=== PATIENT | female | born 2000 | race American Indian/Alaskan Native ===

== ENCOUNTER 2018-09-07 16:42 | Inpatient (IN) | payer MEDICAID ==
--- NOTE | 2018-09-07 17:05 | Emergency Department Report ---
ED Psych HPI - General Chief Complaint: Psych Stated Complaint: MH Time Seen by Provider: 09/07/18 17:05 Source: EMS Mode of arrival: Stretcher - History of Present Illness Initial Comments: Patient overdosed on an unknown amount of Xanax and other unknown medications. Patient is altered and confused and she is not answering questions. However, she is drowsy but arousable and protection her air way. MD Complaint: suicidal ideation, feels depressed -: Sudden, This afternoon Associated Psychiatric Symptoms: depression, suicidal ideation Quality: constant Improves With: none Worsens With: none Associated Symptoms: confusion Treatments Prior to Arrival: none - Related Data Home Medications Medication Instructions Recorded Confirmed Last Taken Unobtainable 09/07/18 09/07/18 Unknown Allergies Allergy/AdvReac Type Severity Reaction Status Date / Time No Known Allergies Allergy Verified 09/07/18 16:50 ED Review of Systems ROS: Stated complaint: MH Other details as noted in HPI Comment: Unobtainable due to pts medical conditions (altered mental status) ED Past Medical Hx - Past Medical History Hx Psychiatric Treatment: Yes - Surgical History Additional Surgical History: 10lb ovarian cyst removed - Social History Smoking Status: Unknown if ever smoked - Medications Home Medications: Home Medications Medication Instructions Recorded Confirmed Last Taken Type Unobtainable 09/07/18 09/07/18 Unknown History ED Physical Exam - General Limitations: Altered Mental Status General appearance: lethargic - Head Head exam: Present: atraumatic, normal inspection - Eye Eye exam: Present: normal appearance, PERRL - ENT ENT exam: Present: mucous membranes moist - Neck Neck exam: Present: normal inspection, full ROM - Respiratory Respiratory exam: Present: normal lung sounds bilaterally. Absent: respiratory distress - Cardiovascular Cardiovascular Exam: Present: regular rate, normal rhythm, normal heart sounds. Absent: systolic murmur, diastolic murmur, rubs, gallop - GI/Abdominal GI/Abdominal exam: Present: soft, normal bowel sounds. Absent: distended, tenderness, guarding - Rectal Rectal exam: Present: deferred - Extremities Exam Extremities exam: Present: normal inspection - Back Exam Back exam: Present: normal inspection - Neurological Exam Neurological exam: Present: alert, altered, other (Gcs = 10) - Psychiatric Psychiatric exam: Present: normal affect, normal mood - Skin Skin exam: Present: warm, dry, intact, normal color. Absent: rash ED Course Vital Signs 09/07/18 09/07/18 09/07/18 17:05 18:26 18:30 Pulse Rate 96 H 86 88 Respiratory 12 14 16 Rate Blood Pressure 73/43 Blood Pressure 90/50 [Left] O2 Sat by Pulse 100 100 100 Oximetry 09/07/18 09/07/18 09/07/18 18:45 19:00 19:15 Pulse Rate 90 88 86 Respiratory 12 17 14 Rate Blood Pressure 88/43 72/40 81/42 Blood Pressure [Left] O2 Sat by Pulse 100 100 Oximetry 09/07/18 09/07/18 09/07/18 19:30 19:45 20:00 Pulse Rate 87 77 89 Respiratory 16 13 13 Rate Blood Pressure 90/52 100/63 103/54 Blood Pressure [Left] O2 Sat by Pulse 100 100 Oximetry 09/07/18 09/07/18 09/07/18 20:45 21:00 21:15 Pulse Rate 95 H 90 Respiratory 17 17 Rate Blood Pressure 117/74 117/74 82/48 Blood Pressure [Left] O2 Sat by Pulse 100 100 100 Oximetry 09/07/18 09/07/18 21:30 21:45 Pulse Rate 90 90 Respiratory 13 15 Rate Blood Pressure 80/45 93/56 Blood Pressure [Left] O2 Sat by Pulse 100 Oximetry - Consultations Consultation #1: 09/07/18 21:09 Dr Barr to admit for further management. - Central Line Placement Right Femoral Consent Obtained: emergent situation Time Out Performed: Yes Patient Placed on Monitor/Pulse Ox: Yes MD Prep: mask, gown, gloves Central Line Prep: Chlorhexidine scrub Local Anesthesia Used: Lidocaine 1% Amount of Anesthesia Used (mls): 5 Ultrasound Used for Placement: Yes Central Line Lumen Inserted: triple Bloods Obtained for Lab: No Central Line Position: good blood return, all ports aspirated, flus, sutured in place with 2-0 Dressing Applied: Tegaderm, sterile gauze/tape Patient Tolerated Procedure: well, no complications Complications: none - EJ/Peripheral Line Neck R Time Out Performed: Yes Indications: multiple IV sites needed Skin Cleansed in Sterile Fashion: Yes Size: 18 Dressing Placed: Tegaderm, tape Patient Tolerated Procedure: well, no complications ED Medical Decision Making - Lab Data Result diagrams: 09/07/18 17:46 09/07/18 17:46 Lab Results 09/07/18 09/07/18 09/07/18 Range/Units 17:46 17:46 17:46 WBC 6.5 (4.5-11.0) K/mm3 RBC 4.79 (3.65-5.03) M/mm3 Hgb 13.6 (10.1-14.3) gm/dl Hct 40.6 (30.3-42.9) % MCV 85 (79-97) fl MCH 28 (28-32) pg MCHC 34 (30-34) % RDW 14.6 (13.2-15.2) % Plt Count 202 (140-440) K/mm3 Lymph % (Auto) 22.7 (13.4-35.0) % Rowan % (Auto) 12.4 H (0.0-7.3) % Eos % (Auto) 0.4 (0.0-4.3) % Baso % (Auto) 0.4 (0.0-1.8) % Lymph # 1.5 (1.2-5.4) K/mm3 Rowan # 0.8 (0.0-0.8) K/mm3 Eos # 0.0 (0.0-0.4) K/mm3 Baso # 0.0 (0.0-0.1) K/mm3 Seg Neutrophils % 64.1 (40.0-70.0) % Seg Neutrophils # 4.2 (1.8-7.7) K/mm3 Sodium 140 (137-145) mmol/L Potassium 4.1 (3.6-5.0) mmol/L Chloride 101.7 (98-107) mmol/L Carbon Dioxide 26 (22-30) mmol/L Anion Gap 16 mmol/L BUN 11 (7-17) mg/dL Creatinine 0.8 (0.7-1.2) mg/dL Estimated GFR > 60 ml/min BUN/Creatinine Ratio 14 % Glucose 77 (65-100) mg/dL Calcium 9.5 (8.4-10.2) mg/dL Total Bilirubin 0.50 (0.1-1.2) mg/dL AST 23 (5-40) units/L ALT 14 (7-56) units/L Alkaline Phosphatase 51 (35-129) units/L Total Protein 7.9 (6.3-8.2) g/dL Albumin 4.5 (3.9-5) g/dL Albumin/Globulin Ratio 1.3 % TSH 1.770 (0.270-4.200) mlU/mL HCG, Qual (Negative) Salicylates (2.8-20.0) mg/dL Acetaminophen (10.0-30.0) ug/mL Plasma/Serum Alcohol (0-0.07) % 09/07/18 09/07/18 09/07/18 Range/Units 17:46 17:46 17:46 WBC (4.5-11.0) K/mm3 RBC (3.65-5.03) M/mm3 Hgb (10.1-14.3) gm/dl Hct (30.3-42.9) % MCV (79-97) fl MCH (28-32) pg MCHC (30-34) % RDW (13.2-15.2) % Plt Count (140-440) K/mm3 Lymph % (Auto) (13.4-35.0) % Rowan % (Auto) (0.0-7.3) % Eos % (Auto) (0.0-4.3) % Baso % (Auto) (0.0-1.8) % Lymph # (1.2-5.4) K/mm3 Rowan # (0.0-0.8) K/mm3 Eos # (0.0-0.4) K/mm3 Baso # (0.0-0.1) K/mm3 Seg Neutrophils % (40.0-70.0) % Seg Neutrophils # (1.8-7.7) K/mm3 Sodium (137-145) mmol/L Potassium (3.6-5.0) mmol/L Chloride (98-107) mmol/L Carbon Dioxide (22-30) mmol/L Anion Gap mmol/L BUN (7-17) mg/dL Creatinine (0.7-1.2) mg/dL Estimated GFR ml/min BUN/Creatinine Ratio % Glucose (65-100) mg/dL Calcium (8.4-10.2) mg/dL Total Bilirubin (0.1-1.2) mg/dL AST (5-40) units/L ALT (7-56) units/L Alkaline Phosphatase (35-129) units/L Total Protein (6.3-8.2) g/dL Albumin (3.9-5) g/dL Albumin/Globulin Ratio % TSH (0.270-4.200) mlU/mL HCG, Qual (Negative) Salicylates < 0.3 L (2.8-20.0) mg/dL Acetaminophen < 5.0 L (10.0-30.0) ug/mL Plasma/Serum Alcohol < 0.01 (0-0.07) % 09/07/18 Range/Units 17:46 WBC (4.5-11.0) K/mm3 RBC (3.65-5.03) M/mm3 Hgb (10.1-14.3) gm/dl Hct (30.3-42.9) % MCV (79-97) fl MCH (28-32) pg MCHC (30-34) % RDW (13.2-15.2) % Plt Count (140-440) K/mm3 Lymph % (Auto) (13.4-35.0) % Rowan % (Auto) (0.0-7.3) % Eos % (Auto) (0.0-4.3) % Baso % (Auto) (0.0-1.8) % Lymph # (1.2-5.4) K/mm3 Rowan # (0.0-0.8) K/mm3 Eos # (0.0-0.4) K/mm3 Baso # (0.0-0.1) K/mm3 Seg Neutrophils % (40.0-70.0) % Seg Neutrophils # (1.8-7.7) K/mm3 Sodium (137-145) mmol/L Potassium (3.6-5.0) mmol/L Chloride (98-107) mmol/L Carbon Dioxide (22-30) mmol/L Anion Gap mmol/L BUN (7-17) mg/dL Creatinine (0.7-1.2) mg/dL Estimated GFR ml/min BUN/Creatinine Ratio % Glucose (65-100) mg/dL Calcium (8.4-10.2) mg/dL Total Bilirubin (0.1-1.2) mg/dL AST (5-40) units/L ALT (7-56) units/L Alkaline Phosphatase (35-129) units/L Total Protein (6.3-8.2) g/dL Albumin (3.9-5) g/dL Albumin/Globulin Ratio % TSH (0.270-4.200) mlU/mL HCG, Qual Negative (Negative) Salicylates (2.8-20.0) mg/dL Acetaminophen (10.0-30.0) ug/mL Plasma/Serum Alcohol (0-0.07) % - EKG Data -: EKG Interpreted by Sd EKG shows normal: sinus rhythm Rate: normal (93) - EKG Data When compared to previous EKG there are: previous EKG unavailable Interpretation: nonspecific ST-T wave candi 09/07/18 21:10 No STEMI. RVH. - Radiology Data Radiology results: report reviewed, image reviewed Head CT scan is negative. - Medical Decision Making Multiple drug overdose. Suicide Ideation. Severe Depression. Hypotension. Critical Care Time: Yes Critical care time in (mins) excluding proc time.: 65 Critical care attestation.: If time is entered above; I have spent that time in minutes in the direct care of this critically ill patient, excluding procedure time. ED Disposition Clinical Impression: Suicide ideation Hypotension Qualifiers: Hypotension type: unspecified hypotension type Qualified Code(s): I95.9 - Hypotension, unspecified Drug overdose, multiple drugs Qualifiers: Encounter type: initial encounter Injury intent: intentional self-harm Qu alified Code(s): T50.902A - Poisoning by unspecified drugs, medicaments and biological substances, intentional self-harm, initial encounter Major depression Qualifiers: Major depression recurrence: unspecified whether recurrent Active/Remission status: remission status unspecified Qualified Code(s): F32.9 - Major depressive disorder, single episode, unspecified Disposition: -09 OP ADMIT IP TO THIS HOSP Is pt being admited?: Yes Does the pt Need Aspirin: No Condition: Stable Time of Disposition: 21:12
[2018-09-07] MEDS ORDERED: NACL 0.9% 1000 ML 1,000 ML IV ONE ×3 (17:16→23:18)
[2018-09-07 17:56] LABS: Basophils % (Auto) 0.4 % (0.0-1.8); Eosinophils % (Auto) 0.4 % (0.0-4.3); Hematocrit 40.6 % (30.3-42.9); Hemoglobin 13.6 gm/dl (10.1-14.3); Lymphocytes # (Auto) 1.5 K/mm3 (1.2-5.4); Lymphocytes % (Auto) 22.7 % (13.4-35.0); Mean Corpuscular HGB Conc 34 % (30-34); Mean Corpuscular Volume 85 fl (79-97); Monocytes # (Auto) 0.8 K/mm3 (0.0-0.8); Monocytes % (Auto) 12.4 % (0.0-7.3); Platelet Count 202 K/mm3 (140-440); Red Blood Count 4.79 M/mm3 (3.65-5.03); Red Cell Distribution Width 14.6 % (13.2-15.2)
[2018-09-07 18:14] LABS: Alanine Aminotransferase 14 units/L (7-56); Albumin 4.5 g/dL (3.9-5); BUN/Creatinine Ratio 14; Blood Urea Nitrogen 11 mg/dL (7-17); Calcium 9.5 mg/dL (8.4-10.2); Hemolysis Index 41
[2018-09-07] MEDS ORDERED: LEVOPHED DRIP 4 MG/NS 250 ML 4 MG/250 ML BAG IV ONE (19:15)
[2018-09-07] MEDS: LEVOPHED DRIP 4 MG/NS 250 ML 4 MG/250 ML BAG IV SCH (19:15)
[2018-09-07] MEDS ORDERED: D50W (25GM) Syringe IV ONE (20:50)
[2018-09-07] MEDS ORDERED: D5NS 1,000 ML IV SCH (21:00)
--- NOTE | 2018-09-07 21:03 | Cat Scan Report ---
FINAL REPORT PROCEDURE: CT head without contrast. TECHNIQUE: Computerized tomography of the head was performed without contrast material. HISTORY: Altered mental status. COMPARISON: No prior studies are available for comparison. FINDINGS: The ventricles are normal in size. The brito matter and white matter appear normal. There are no mass lesions. There is no intracranial hemorrhage. The calvarium appears intact. The mastoid air cells and visualized paranasal sinuses are well aerated. IMPRESSION: Normal study.
[2018-09-07 21:14] LABS: Bacteria,Urine 1+ /HPF (Negative); Bilirubin,Urine NEG (Negative); Blood,Urine SM (Negative); Color,Urine Yellow (Yellow); Mucus,Urine 2+ /HPF; Protein,Urine <15 mg/dL mg/dL (Negative); Urobilinogen,Urine < 2.0 mg/dL (<2.0)
[2018-09-07 21:21] LABS: Amphetamine Screen,Urine PRESUMPTIVE NEGATIVE; Cannabinoid Screen,Urine PRESUMPTIVE NEGATIVE; Cocaine Screen,Urine PRESUMPTIVE NEGATIVE; Methadone Screen,Urine PRESUMPTIVE NEGATIVE; Opiate Screen,Urine PRESUMPTIVE NEGATIVE
[2018-09-07 21:49] LABS: Benzodiazepines Screen,Urine PRESUMPTIVE POSITIVE
--- NOTE | 2018-09-07 21:52 | XRay Report ---
FINAL REPORT PROCEDURE: Chest. TECHNIQUE: Chest radiograph anteroposterior view. CPT 69629 HISTORY: Altered mental status. COMPARISON: No prior studies are available for comparison. FINDINGS: The heart and mediastinum appear normal. The lungs are clear and well expanded. There are no pleural effusions. The soft tissues and regional skeleton are unremarkable. IMPRESSION: No evidence of acute disease.
[2018-09-07] MEDS ORDERED: SODIUM CHLORIDE FLUSH SYRINGE 10 ML IV PRN (22:38)
[2018-09-07] MEDS ORDERED: REGLAN IV PRN (22:38)
--- NOTE | 2018-09-07 22:52 | History and Physical Report ---
<ERIKA MATHEW - Last Filed: 09/08/18 06:19> History of Present Illness Date of examination: 09/07/18 Date of admission: 09/08/2018 Chief complaint: DOD, AMS History of present illness: Pt is a 18 yo BF with unknown medical condition who was brought to the ER for concern for DOD, pt has been unresponsive since admission, a UDS was positive for benzodiazepine. There was no family unavailable to provide medical history, while in the ER pt remain unresponsive, pt is responsive to painful stimuli, her pupil is pinpoint, her blood systolic pressure become low and continue to remain under 100, she was started in a Levophed drip to keep her systolic > 110.Pt will be transferred to ICU for continuous medical monitoring, she is placed in a 1013, and one-in-one observation is provided in room for pt's protection. Past History Past Medical History: No medical history Past Surgical History: No surgical history Social history: no significant social history Medications and Allergies Allergies Allergy/AdvReac Type Severity Reaction Status Date / Time No Known Allergies Allergy Verified 09/07/18 16:50 Home Medications Medication Instructions Recorded Confirmed Last Taken Type Unobtainable 09/07/18 09/07/18 Unknown History Active Meds: Active Medications Norepinephrine (Levophed Drip 4 Mg/Ns 250 Ml) 4 mg in 250 mls @ 7.5 mls/hr IV TITR HARJIT; Protocol Last Titration: 09/07/18 21:35 Dose: 4 mcg/min, 15 mls/hr Documented by: Dextrose/Sodium Chloride (D5ns) 1,000 mls @ 150 mls/hr IV DIRECT HARJIT Last Admin: 09/07/18 21:00 Dose: 150 mls/hr Documented by: Review of Systems ROS unobtainable: due to mental status Exam - Constitutional Vitals: Temp Pulse Resp BP Pulse Ox 90 15 93/56 100 09/07/18 21:45 09/07/18 21:45 09/07/18 21:45 09/07/18 21:30 General appearance: Present: other (pt is unresponsive) - Respiratory Respiratory effort: other (even and unlabored, shallow) Respiratory: bilateral: CTA - Cardiovascular Rhythm: regular - Extremities Extremities: no ischemia, No edema Peripheral Pulses: within normal limits - Abdominal General gastrointestinal: Present: soft, non-tender Female genitourinary: Present: deferred - Rectal Rectal Exam: deferred - Integumentary Integumentary: Present: warm, dry - Musculoskeletal Musculoskeletal: other (unable to assess) - Psychiatric Psychiatric: other (unable to assess) - Neurologic Neurologic: other (unable to assess) Results - Labs CBC & Chem 7: 09/07/18 17:46 09/07/18 17:46 Labs: Laboratory Last Values WBC 6.5 K/mm3 (4.5-11.0) 09/07/18 17:46 RBC 4.79 M/mm3 (3.65-5.03) 09/07/18 17:46 Hgb 13.6 gm/dl (10.1-14.3) 09/07/18 17:46 Hct 40.6 % (30.3-42.9) 09/07/18 17:46 MCV 85 fl (79-97) 09/07/18 17:46 MCH 28 pg (28-32) 09/07/18 17:46 MCHC 34 % (30-34) 09/07/18 17:46 RDW 14.6 % (13.2-15.2) 09/07/18 17:46 Plt Count 202 K/mm3 (140-440) 09/07/18 17:46 Lymph % (Auto) 22.7 % (13.4-35.0) 09/07/18 17:46 [place] % (Auto) 12.4 % (0.0-7.3) H 09/07/18 17:46 Eos % (Auto) 0.4 % (0.0-4.3) 09/07/18 17:46 Baso % (Auto) 0.4 % (0.0-1.8) 09/07/18 17:46 Lymph # 1.5 K/mm3 (1.2-5.4) 09/07/18 17:46 [place] # 0.8 K/mm3 (0.0-0.8) 09/07/18 17:46 Eos # 0.0 K/mm3 (0.0-0.4) 09/07/18 17:46 Baso # 0.0 K/mm3 (0.0-0.1) 09/07/18 17:46 Seg Neutrophils % 64.1 % (40.0-70.0) 09/07/18 17:46 Seg Neutrophils # 4.2 K/mm3 (1.8-7.7) 09/07/18 17:46 Sodium 140 mmol/L (137-145) 09/07/18 17:46 Potassium 4.1 mmol/L (3.6-5.0) 09/07/18 17:46 Chloride 101.7 mmol/L (98-107) 09/07/18 17:46 Carbon Dioxide 26 mmol/L (22-30) 09/07/18 17:46 Anion Gap 16 mmol/L 09/07/18 17:46 BUN 11 mg/dL (7-17) 09/07/18 17:46 Creatinine 0.8 mg/dL (0.7-1.2) 09/07/18 17:46 Estimated GFR > 60 ml/min 09/07/18 17:46 BUN/Creatinine Ratio 14 % 09/07/18 17:46 Glucose 77 mg/dL (65-100) 09/07/18 17:46 Calcium 9.5 mg/dL (8.4-10.2) 09/07/18 17:46 Total Bilirubin 0.50 mg/dL (0.1-1.2) 09/07/18 17:46 AST 23 units/L (5-40) 09/07/18 17:46 ALT 14 units/L (7-56) 09/07/18 17:46 Alkaline Phosphatase 51 units/L (35-129) 09/07/18 17:46 Total Protein 7.9 g/dL (6.3-8.2) 09/07/18 17:46 Albumin 4.5 g/dL (3.9-5) 09/07/18 17:46 Albumin/Globulin Ratio 1.3 % 09/07/18 17:46 TSH 1.770 mlU/mL (0.270-4.200) 09/07/18 17:46 HCG, Qual Negative (Negative) 09/07/18 17:46 Urine Color Yellow (Yellow) 09/07/18 20:58 Urine Turbidity Clear (Clear) 09/07/18 20:58 Urine pH 5.0 (5.0-7.0) 09/07/18 20:58 Ur Specific Covel 1.012 (1.003-1.030) 09/07/18 20:58 Urine Protein <15 mg/dl mg/dL (Negative) 09/07/18 20:58 Urine Glucose (UA) 50 mg/dL (Negative) 09/07/18 20:58 Urine Ketones 20 mg/dL (Negative) 09/07/18 20:58 Urine Blood Sm (Negative) 09/07/18 20:58 Urine Nitrite Neg (Negative) 09/07/18 20:58 Urine Bilirubin Neg (Negative) 09/07/18 20:58 Urine Urobilinogen < 2.0 mg/dL (<2.0) 09/07/18 20:58 Ur Leukocyte Esterase Tr (Negative) 09/07/18 20:58 Urine WBC (Auto) 6.0 /HPF (0.0-6.0) 09/07/18 20:58 Urine RBC (Auto) 4.0 /HPF (0.0-6.0) 09/07/18 20:58 U Epithel Cells (Auto) 1.0 /HPF (0-13.0) 09/07/18 20:58 Urine Bacteria (Auto) 1+ /HPF (Negative) 09/07/18 20:58 Urine Mucus 2+ /HPF 09/07/18 20:58 Urine Yeast (Budding) Few /HPF 09/07/18 20:58 Salicylates < 0.3 mg/dL (2.8-20.0) L 09/07/18 17:46 Urine Opiates Screen Presumptive negative 09/07/18 20:58 Urine Methadone Screen Presumptive negative 09/07/18 20:58 Acetaminophen < 5.0 ug/mL (10.0-30.0) L 09/07/18 17:46 Ur Barbiturates Screen Presumptive negative 09/07/18 20:58 Ur Phencyclidine Scrn Presumptive negative 09/07/18 20:58 Ur Amphetamines Screen Presumptive negative 09/07/18 20:58 U Benzodiazepines Scrn Presumptive positive 09/07/18 20:58 Urine Cocaine Screen Presumptive negative 09/07/18 20:58 U Marijuana (THC) Screen Presumptive negative 09/07/18 20:58 Drugs of Abuse Note Disclamer 09/07/18 20:58 Plasma/Serum Alcohol < 0.01 % (0-0.07) 09/07/18 17:46 Assessment and Plan Assessment and plan: Pt is a 18 yo female with DOD, UDS was positive for benzo 1. Drug over dose 2. UDS positive for Benzo 3. 1030 Plan Admitted to ICU for DOD Consult javascript front end developer for critical care management Keep pt NPO until awake and alert Continue Levophed drip to keep SBP> 110 or MAP >65 Monitor neuro status q2hr D5NS for hydration while NPO Check Electrolytes K/Mg initiate protocol Further plan per hospital course Pt's condition and plan of care was d/w Dr Barr Advance Directives: Yes VTE prophylaxis?: Mechanical Plan of care discussed with patient/family: Yes <NOA BARR - Last Filed: 09/08/18 06:47> History of Present Illness Date of admission: 09/07/18 22:38 Medications and Allergies Active Meds: Active Medications Famotidine (Pepcid) 20 mg IV BID [facility] Last Admin: 09/07/18 23:17 Dose: 20 mg Documented by: Norepinephrine (Levophed Drip 4 Mg/Ns 250 Ml) 4 mg in 250 mls @ 7.5 mls/hr IV TITR HARJIT; Protocol Last Titration: 09/07/18 23:17 Dose: 2 mcg/min, 7.5 mls/hr Documented by: Sodium Chloride (Nacl 0.9% 1000 Ml) 1,000 mls @ 150 mls/hr IV DIRECT HARJIT Metoclopramide HCl (Reglan) 10 mg IV Q6H PRN PRN Reason: Nausea And Vomiting Ondansetron HCl (Zofran) 4 mg IV Q8H PRN PRN Reason: Nausea And Vomiting Sodium Chloride (Sodium Chloride Flush Syringe 10 Ml) 10 ml IV BID [facility] Last Admin: 09/07/18 23:17 Dose: 10 ml Documented by: Sodium Chloride (Sodium Chloride Flush Syringe 10 Ml) 10 ml IV PRN PRN PRN Reason: LINE FLUSH Exam - Constitutional Vitals: Temp Pulse Resp BP Pulse Ox 88 13 111/72 100 09/08/18 04:45 09/08/18 04:45 09/08/18 04:45 09/08/18 04:45 Results - Labs CBC & Chem 7: 09/07/18 17:46 09/07/18 17:46 Labs: Laboratory Last Values WBC 6.5 K/mm3 (4.5-11.0) 09/07/18 17:46 RBC 4.79 M/mm3 (3.65-5.03) 09/07/18 17:46 Hgb 13.6 gm/dl (10.1-14.3) 09/07/18 17:46 Hct 40.6 % (30.3-42.9) 09/07/18 17:46 MCV 85 fl (79-97) 09/07/18 17:46 MCH 28 pg (28-32) 09/07/18 17:46 MCHC 34 % (30-34) 09/07/18 17:46 RDW 14.6 % (13.2-15.2) 09/07/18 17:46 Plt Count 202 K/mm3 (140-440) 09/07/18 17:46 Lymph % (Auto) 22.7 % (13.4-35.0) 09/07/18 17:46 [place] % (Auto) 12.4 % (0.0-7.3) H 09/07/18 17:46 Eos % (Auto) 0.4 % (0.0-4.3) 09/07/18 17:46 Baso % (Auto) 0.4 % (0.0-1.8) 09/07/18 17:46 Lymph # 1.5 K/mm3 (1.2-5.4) 09/07/18 17:46 [place] # 0.8 K/mm3 (0.0-0.8) 09/07/18 17:46 Eos # 0.0 K/mm3 (0.0-0.4) 09/07/18 17:46 Baso # 0.0 K/mm3 (0.0-0.1) 09/07/18 17:46 Seg Neutrophils % 64.1 % (40.0-70.0) 09/07/18 17:46 Seg Neutrophils # 4.2 K/mm3 (1.8-7.7) 09/07/18 17:46 Sodium 140 mmol/L (137-145) 09/07/18 17:46 Potassium 4.1 mmol/L (3.6-5.0) 09/07/18 17:46 Chloride 101.7 mmol/L (98-107) 09/07/18 17:46 Carbon Dioxide 26 mmol/L (22-30) 09/07/18 17:46 Anion Gap 16 mmol/L 09/07/18 17:46 BUN 11 mg/dL (7-17) 09/07/18 17:46 Creatinine 0.8 mg/dL (0.7-1.2) 09/07/18 17:46 Estimated GFR > 60 ml/min 09/07/18 17:46 BUN/Creatinine Ratio 14 % 09/07/18 17:46 Glucose 77 mg/dL (65-100) 09/07/18 17:46 Calcium 9.5 mg/dL (8.4-10.2) 09/07/18 17:46 Total Bilirubin 0.50 mg/dL (0.1-1.2) 09/07/18 17:46 AST 23 units/L (5-40) 09/07/18 17:46 ALT 14 units/L (7-56) 09/07/18 17:46 Alkaline Phosphatase 51 units/L (35-129) 09/07/18 17:46 Total Protein 7.9 g/dL (6.3-8.2) 09/07/18 17:46 Albumin 4.5 g/dL (3.9-5) 09/07/18 17:46 Albumin/Globulin Ratio 1.3 % 09/07/18 17:46 TSH 1.770 mlU/mL (0.270-4.200) 09/07/18 17:46 HCG, Qual Negative (Negative) 09/07/18 17:46 Urine Color Yellow (Yellow) 09/07/18 20:58 Urine Turbidity Clear (Clear) 09/07/18 20:58 Urine pH 5.0 (5.0-7.0) 09/07/18 20:58 Ur Specific [place]vel 1.012 (1.003-1.030) 09/07/18 20:58 Urine Protein <15 mg/dl mg/dL (Negative) 09/07/18 20:58 Urine Glucose (UA) 50 mg/dL (Negative) 09/07/18 20:58 Urine Ketones 20 mg/dL (Negative) 09/07/18 20:58 Urine Blood Sm (Negative) 09/07/18 20:58 Urine Nitrite Neg (Negative) 09/07/18 20:58 Urine Bilirubin Neg (Negative) 09/07/18 20:58 Urine Urobilinogen < 2.0 mg/dL (<2.0) 09/07/18 20:58 Ur Leukocyte Esterase Tr (Negative) 09/07/18 20:58 Urine WBC (Auto) 6.0 /HPF (0.0-6.0) 09/07/18 20:58 Urine RBC (Auto) 4.0 /HPF (0.0-6.0) 09/07/18 20:58 U Epithel Cells (Auto) 1.0 /HPF (0-13.0) 09/07/18 20:58 Urine Bacteria (Auto) 1+ /HPF (Negative) 09/07/18 20:58 Urine Mucus 2+ /HPF 09/07/18 20:58 Urine Yeast (Budding) Few /HPF 09/07/18 20:58 Salicylates < 0.3 mg/dL (2.8-20.0) L 09/07/18 17:46 Urine Opiates Screen Presumptive negative 09/07/18 20:58 Urine Methadone Screen Presumptive negative 09/07/18 20:58 Acetaminophen < 5.0 ug/mL (10.0-30.0) L 09/07/18 17:46 Ur Barbiturates Screen Presumptive negative 09/07/18 20:58 Ur Phencyclidine Scrn Presumptive negative 09/07/18 20:58 Ur Amphetamines Screen Presumptive negative 09/07/18 20:58 U Benzodiazepines Scrn Presumptive positive 09/07/18 20:58 Urine Cocaine Screen Presumptive negative 09/07/18 20:58 U Marijuana (THC) Screen Presumptive negative 09/07/18 20:58 Drugs of Abuse Note Disclamer 09/07/18 20:58 Plasma/Serum Alcohol < 0.01 % (0-0.07) 09/07/18 17:46 Assessment and Plan Assessment and plan: 18-year-old woman was brought to the emergency room for evaluation of overdose with Xanax. Patient was hypotensive and started on Levophed drip. She is oriented to self, lethargic but arousable. Agree with plan as discussed above, in addition consult psych, patient is 1013
[2018-09-07] MEDS ORDERED: NACL 0.9% 1000 ML 1,000 ML ONE (23:10)
[2018-09-07] MEDS: SODIUM CHLORIDE FLUSH SYRINGE 10 ML IV SCH (23:17)
[2018-09-07] MEDS: PEPCID IV SCH (23:17)
[2018-09-08] MEDS ORDERED: NACL 0.9% 1000 ML 1,000 ML IV SCH (02:00)
[2018-09-08] MEDS: LEVOPHED DRIP 4 MG/NS 250 ML 4 MG/250 ML BAG IV SCH (07:37)
[2018-09-08 07:51] LABS: Basophils % (Auto) 0.3 % (0.0-1.8); Eosinophils % (Auto) 0.8 % (0.0-4.3); Hematocrit 37.1 % (30.3-42.9); Hemoglobin 11.8 gm/dl (10.1-14.3); Lymphocytes % (Auto) 16.9 % (13.4-35.0); Mean Corpuscular HGB Conc 32 % (30-34); Mean Corpuscular Volume 87 fl (79-97); Monocytes # (Auto) 0.7 K/mm3 (0.0-0.8); Monocytes % (Auto) 12.1 % (0.0-7.3); Platelet Count 186 K/mm3 (140-440); Red Blood Count 4.29 M/mm3 (3.65-5.03); Red Cell Distribution Width 14.8 % (13.2-15.2)
[2018-09-08 07:59] LABS: Alanine Aminotransferase 10 units/L (7-56); Albumin 3.4 g/dL (3.9-5); BUN/Creatinine Ratio 5; Blood Urea Nitrogen 3 mg/dL (7-17); Calcium 7.9 mg/dL (8.4-10.2); Hemolysis Index 35
[2018-09-08] MEDS ORDERED: NACL 0.9% 1000 ML 1,000 ML IV ONE ×3 (08:42→20:53)
[2018-09-08] MEDS ORDERED: NACL 0.9% 1000 ML 2,000 ML ONE (08:49)
[2018-09-08] MEDS ORDERED: PEPCID IV ONE ×2 (09:51→23:09)
[2018-09-08] MEDS: TORADOL IV PRN (09:53)
[2018-09-08] MEDS: PEPCID IV SCH ×2 (09:53→23:19)
[2018-09-08] MEDS: SODIUM CHLORIDE FLUSH SYRINGE 10 ML IV SCH ×2 (09:53→23:20)
--- NOTE | 2018-09-08 13:04 | Progress Note ---
Assessment and Plan Assessment and plan: Pt is a 18 yo BF with unknown medical condition who was brought to the ER for concern for DOD, pt has been unresponsive since admission, a UDS was positive for benzodiazepine. There was no family unavailable to provide medical history, while in the ER pt remain unresponsive, pt is responsive to painful stimuli, her pupil is pinpoint, her blood systolic pressure become low and continue to remain under 100, she was started in a Levophed drip to keep her systolic > 110.Pt will be transferred to ICU for continuous medical monitoring, she is placed in a 1013, and one-in-one observation is provided in room for pt's protection. This morning she reports that she was experiencing an anxiety attack and her boyfriend gave her one of xanax and she may have had a "bad reaction to it" Acute encephalopathy( toxic, metabolic) ?Vasogeneic shock Hypotension h/o Neuroectodermal tumor-PER PATIENT Doubt Suicidal ideation-Pt denies suicide attempt or desire Substance abuse h/o Depression and anxiety Plan Continue supportive care Give additional 2 liter bolus of fluids Wean off vasopressor support Continue 1013 Precaution until cleared by Psych Ok to eat Correct electrolytes DVT/GI prophy Plan of care discussed in detail with the patient. cct 35 mins History Interval history: Patient seen and examined, now awake but still lethargic, reports hx of Migraines -Acute encephalopathy( toxic, metabolic) -Hypotension -h/o Neuroectodermal tumor -h/o Depression and anxiety -Wean off vasopressor support -Discontinue cortés catheter -Monitor electrolytes and hemodynaics -Psych evaluation -Discontinue NPO -regular diet Once vasopressor support if off, patient can be admitted to the telemetry floor. Discussed care plan with the patient and answered all her questions Discussed with ED RN and ED physician re care plan - Hospitalist Physical - Physical exam Narrative exam: VITAL SIGNS: Reviewed. GENERAL: The patient appeared well nourished and normally developed otherwise lethargic. Vital signs as documented. HEAD: No signs of head trauma. EYES: Pupils are equal. Extraocular motions intact. EARS: Hearing grossly intact. MOUTH: Oropharynx is normal. NECK: No adenopathy, no JVD. CHEST: Chest with clear breath sounds bilaterally. No wheezes, rales, or rhonchi. CARDIAC: Regular rate and rhythm. S1 and S2, without murmurs, gallops, or rubs. VASCULAR: No Edema. Peripheral pulses normal and equal in all extremities. ABDOMEN: Soft, without detectable tenderness. No sign of distention. No rebound or guarding, and no masses palpated. Bowel Sounds normal. MUSCULOSKELETAL: Good range of motion of all major joints. Extremities without clubbing, cyanosis or edema. NEUROLOGIC EXAM: awake and oriented x 3. No focal sensory or strength deficits. Speech normal. Follows commands. PSYCHIATRIC: Mood normal. SKIN: No rash or lesions. - Constitutional Vitals: Temp Pulse Resp BP Pulse Ox 83 13 106/66 100 09/08/18 12:45 09/08/18 12:45 09/08/18 12:45 09/08/18 12:45 General appearance: Present: other (pt is unresponsive) Results - Labs CBC & Chem 7: 09/08/18 07:28 09/08/18 07:28 Labs: Laboratory Last Values WBC 5.7 K/mm3 (4.5-11.0) 09/08/18 07:28 RBC 4.29 M/mm3 (3.65-5.03) 09/08/18 07:28 Hgb 11.8 gm/dl (10.1-14.3) 09/08/18 07:28 Hct 37.1 % (30.3-42.9) 09/08/18 07:28 MCV 87 fl (79-97) 09/08/18 07:28 MCH 28 pg (28-32) 09/08/18 07:28 MCHC 32 % (30-34) 09/08/18 07:28 RDW 14.8 % (13.2-15.2) 09/08/18 07:28 Plt Count 186 K/mm3 (140-440) 09/08/18 07:28 Lymph % (Auto) 16.9 % (13.4-35.0) 09/08/18 07:28 [place] % (Auto) 12.1 % (0.0-7.3) H 09/08/18 07:28 Eos % (Auto) 0.8 % (0.0-4.3) 09/08/18 07:28 Baso % (Auto) 0.3 % (0.0-1.8) 09/08/18 07:28 Lymph # 1.0 K/mm3 (1.2-5.4) L 09/08/18 07:28 [place] # 0.7 K/mm3 (0.0-0.8) 09/08/18 07:28 Eos # 0.0 K/mm3 (0.0-0.4) 09/08/18 07:28 Baso # 0.0 K/mm3 (0.0-0.1) 09/08/18 07:28 Seg Neutrophils % 69.9 % (40.0-70.0) 09/08/18 07:28 Seg Neutrophils # 4.0 K/mm3 (1.8-7.7) 09/08/18 07:28 Sodium 140 mmol/L (137-145) 09/08/18 07:28 Potassium 3.8 mmol/L (3.6-5.0) 09/08/18 07:28 Chloride 107.0 mmol/L (98-107) 09/08/18 07:28 Carbon Dioxide 23 mmol/L (22-30) 09/08/18 07:28 Anion Gap 14 mmol/L 09/08/18 07:28 BUN 3 mg/dL (7-17) L 09/08/18 07:28 Creatinine 0.6 mg/dL (0.7-1.2) L 09/08/18 07:28 Estimated GFR > 60 ml/min 09/08/18 07:28 BUN/Creatinine Ratio 5 % 09/08/18 07:28 Glucose 107 mg/dL (65-100) H 09/08/18 07:28 Calcium 7.9 mg/dL (8.4-10.2) L D 09/08/18 07:28 Magnesium 1.80 mg/dL (1.7-2.3) 09/08/18 07:28 Total Bilirubin 0.50 mg/dL (0.1-1.2) 09/08/18 07:28 AST 17 units/L (5-40) 09/08/18 07:28 ALT 10 units/L (7-56) 09/08/18 07:28 Alkaline Phosphatase 42 units/L (35-129) 09/08/18 07:28 Total Protein 6.3 g/dL (6.3-8.2) D 09/08/18 07:28 Albumin 3.4 g/dL (3.9-5) L 09/08/18 07:28 Albumin/Globulin Ratio 1.2 % 09/08/18 07:28 TSH 1.770 mlU/mL (0.270-4.200) 09/07/18 17:46 HCG, Qual Negative (Negative) 09/07/18 17:46 Urine Color Yellow (Yellow) 09/07/18 20:58 Urine Turbidity Clear (Clear) 09/07/18 20:58 Urine pH 5.0 (5.0-7.0) 09/07/18 20:58 Ur Specific [place] 1.012 (1.003-1.030) 09/07/18 20:58 Urine Protein <15 mg/dl mg/dL (Negative) 09/07/18 20:58 Urine Glucose (UA) 50 mg/dL (Negative) 09/07/18 20:58 Urine Ketones 20 mg/dL (Negative) 09/07/18 20:58 Urine Blood Sm (Negative) 09/07/18 20:58 Urine Nitrite Neg (Negative) 09/07/18 20:58 Urine Bilirubin Neg (Negative) 09/07/18 20:58 Urine Urobilinogen < 2.0 mg/dL (<2.0) 09/07/18 20:58 Ur Leukocyte Esterase Tr (Negative) 09/07/18 20:58 Urine WBC (Auto) 6.0 /HPF (0.0-6.0) 09/07/18 20:58 Urine RBC (Auto) 4.0 /HPF (0.0-6.0) 09/07/18 20:58 U Epithel Cells (Auto) 1.0 /HPF (0-13.0) 09/07/18 20:58 Urine Bacteria (Auto) 1+ /HPF (Negative) 09/07/18 20:58 Urine Mucus 2+ /HPF 09/07/18 20:58 Urine Yeast (Budding) Few /HPF 09/07/18 20:58 Salicylates < 0.3 mg/dL (2.8-20.0) L 09/07/18 17:46 Urine Opiates Screen Presumptive negative 09/07/18 20:58 Urine Methadone Screen Presumptive negative 09/07/18 20:58 Acetaminophen < 5.0 ug/mL (10.0-30.0) L 09/07/18 17:46 Ur Barbiturates Screen Presumptive negative 09/07/18 20:58 Ur Phencyclidine Scrn Presumptive negative 09/07/18 20:58 Ur Amphetamines Screen Presumptive negative 09/07/18 20:58 U Benzodiazepines Scrn Presumptive positive 09/07/18 20:58 Urine Cocaine Screen Presumptive negative 09/07/18 20:58 U Marijuana (THC) Screen Presumptive negative 09/07/18 20:58 Drugs of Abuse Note Disclamer 09/07/18 20:58 Plasma/Serum Alcohol < 0.01 % (0-0.07) 09/07/18 17:46
--- NOTE | 2018-09-08 18:01 | Consultation ---
History of Present Illness Consult date: 09/08/18 Requesting physician: DIANE LAURA Reason for consult: other (Acute encephalopathy, Hypotension) History of present illness: Pt is a 18 yo BF with unknown medical condition who was brought to the ER for concern for DOD, pt has been unresponsive since admission, a UDS was positive for benzodiazepine. There was no family unavailable to provide medical history, while in the ER pt remain unresponsive, pt is responsive to painful stimuli, her pupil is pinpoint, her blood systolic pressure become low and continue to remain under 100, she was started in a Levophed drip to keep her systolic > 110.Pt will be transferred to ICU for continuous medical monitoring, she is placed in a 1013, and one-in-one observation is provided in room for pt's protection. At the time of my evaluation in the ED, she was awake and alert. She states she had an anxiety attack, and was given Xanax by her boyfriend and that is the last thing she remembers. Patient was seen and examined. Vitals, labs, medication and chart reviewed. Past History Past Medical History: cancer (neuroectodermal tumor s/p chemotherapy), other (Endometriosis,depression, anxiety) Past Surgical History: No surgical history Social history: alcohol abuse Family history: no significant family history Medications and Allergies Allergies Allergy/AdvReac Type Severity Reaction Status Date / Time No Known Allergies Allergy Verified 09/07/18 16:50 Home Medications Medication Instructions Recorded Confirmed Last Taken Type metroNIDAZOLE [Metronidazole] 500 mg PO BID 09/08/18 09/08/18 Unknown History Active Meds: Active Medications Famotidine (Pepcid) 20 mg IV BID HARJIT Last Admin: 09/08/18 09:53 Dose: 20 mg Documented by: Norepinephrine (Levophed Drip 4 Mg/Ns 250 Ml) 4 mg in 250 mls @ 7.5 mls/hr IV TITR HARJTI; Protocol Last Titration: 09/08/18 10:15 Dose: 4 mcg/min, 15 mls/hr Documented by: Sodium Chloride (Nacl 0.9% 1000 Ml) 1,000 mls @ 150 mls/hr IV DIRECT HARJIT Ketorolac Tromethamine (Toradol) 30 mg IV Q8H PRN PRN Reason: Pain, Moderate (4-6) Stop: 09/13/18 08:54 Last Admin: 09/08/18 09:53 Dose: 30 mg Documented by: Metoclopramide HCl (Reglan) 10 mg IV Q6H PRN PRN Reason: Nausea And Vomiting Ondansetron HCl (Zofran) 4 mg IV Q8H PRN PRN Reason: Nausea And Vomiting Sodium Chloride (Sodium Chloride Flush Syringe 10 Ml) 10 ml IV BID HARJIT Last Admin: 09/08/18 09:53 Dose: 10 ml Documented by: Sodium Chloride (Sodium Chloride Flush Syringe 10 Ml) 10 ml IV PRN PRN PRN Reason: LINE FLUSH Review of Systems Constitutional: no weight loss, no weight gain, no fever, no chills, no sweats, no night sweats Cardiovascular: no chest pain, no orthopnea, no palpitations, no rapid/irregular heart beat, no edema, no syncope, no lightheadedness, no shortness of breath Respiratory: no cough, no cough with sputum, no excessive sputum, no hemoptysis, no dyspnea on exertion Gastrointestinal: no abdominal pain, no nausea, no vomiting, no diarrhea, no constipation, no change in bowel habits, no hematemesis, no coffee ground emesis Neurological: no head injury, no weakness, no parathesias, no numbness, no tingling, no seizures, no syncope, no tremors Psychiatric: no anxiety, no sleep disturbances, no suicidal ideation, no depre ssion, no anxiety attacks, no confusion, no sadness/tearfullness Physical Examination Vital signs: Vital Signs Pulse Resp BP Pulse Ox 96 H 12 90/50 100 09/07/18 17:05 09/07/18 17:05 09/07/18 17:05 09/07/18 17:05 General appearance: no acute distress Eyes: non-icteric ENT: oropharynx moist Neck: supple, no lymphadenopathy, no JVD Effort: normal Ascultation: Bilateral: clear Cardiovascular: regular rate and rhythm, other (S1,S2, no mururs, gallops or rubs) Gastrointestinal: normoactive bowel sounds, soft, non-tender, non-distended, o ther (No CVA tenderness, Cortés catheter, right groin CVA) Integumentary: normal, other Extremities: no cyanosis, no edema, pulses normal, no ischemia or petechiae normal mental status, non-focal exam, pupils equal and round, motor strength normal and mood appropriate, affect normal Results - Laboratory Findings CBC and BMP: 09/08/18 07:28 09/08/18 07:28 Abnormal lab findings: Abnormal Labs 09/07/18 09/07/18 09/07/18 17:46 17:46 17:46 [place] % (Auto) 12.4 H Lymph # BUN Creatinine Glucose Calcium Albumin Salicylates < 0.3 L Acetaminophen < 5.0 L 09/08/18 09/08/18 07:28 07:28 [place] % (Auto) 12.1 H Lymph # 1.0 L BUN 3 L Creatinine 0.6 L Glucose 107 H Calcium 7.9 L D Albumin 3.4 L Salicylates Acetaminophen - Diagnostic Findings Additional studies: WBC 6.5 K/mm3 (4.5-11.0) 09/07/18 17:46 RBC 4.79 M/mm3 (3.65-5.03) 09/07/18 17:46 Hgb 13.6 gm/dl (10.1-14.3) 09/07/18 17:46 Hct 40.6 % (30.3-42.9) 09/07/18 17:46 MCV 85 fl (79-97) 09/07/18 17:46 MCH 28 pg (28-32) 09/07/18 17:46 MCHC 34 % (30-34) 09/07/18 17:46 RDW 14.6 % (13.2-15.2) 09/07/18 17:46 Plt Count 202 K/mm3 (140-440) 09/07/18 17:46 Lymph % (Auto) 22.7 % (13.4-35.0) 09/07/18 17:46 [place] % (Auto) 12.4 % (0.0-7.3) H 09/07/18 17:46 Eos % (Auto) 0.4 % (0.0-4.3) 09/07/18 17:46 Baso % (Auto) 0.4 % (0.0-1.8) 09/07/18 17:46 Lymph # 1.5 K/mm3 (1.2-5.4) 09/07/18 17:46 [place] # 0.8 K/mm3 (0.0-0.8) 09/07/18 17:46 Eos # 0.0 K/mm3 (0.0-0.4) 09/07/18 17:46 Baso # 0.0 K/mm3 (0.0-0.1) 09/07/18 17:46 Seg Neutrophils % 64.1 % (40.0-70.0) 09/07/18 17:46 Seg Neutrophils # 4.2 K/mm3 (1.8-7.7) 09/07/18 17:46 Sodium 140 mmol/L (137-145) 09/07/18 17:46 Potassium 4.1 mmol/L (3.6-5.0) 09/07/18 17:46 Chloride 101.7 mmol/L (98-107) 09/07/18 17:46 Carbon Dioxide 26 mmol/L (22-30) 09/07/18 17:46 Anion Gap 16 mmol/L 09/07/18 17:46 BUN 11 mg/dL (7-17) 09/07/18 17:46 Creatinine 0.8 mg/dL (0.7-1.2) 09/07/18 17:46 Estimated GFR > 60 ml/min 09/07/18 17:46 BUN/Creatinine Ratio 14 % 09/07/18 17:46 Glucose 77 mg/dL (65-100) 09/07/18 17:46 Calcium 9.5 mg/dL (8.4-10.2) 09/07/18 17:46 Total Bilirubin 0.50 mg/dL (0.1-1.2) 09/07/18 17:46 AST 23 units/L (5-40) 09/07/18 17:46 ALT 14 units/L (7-56) 09/07/18 17:46 Alkaline Phosphatase 51 units/L (35-129) 09/07/18 17:46 Total Protein 7.9 g/dL (6.3-8.2) 09/07/18 17:46 Albumin 4.5 g/dL (3.9-5) 09/07/18 17:46 Albumin/Globulin Ratio 1.3 % 09/07/18 17:46 TSH 1.770 mlU/mL (0.270-4.200) 09/07/18 17:46 HCG, Qual Negative (Negative) 09/07/18 17:46 Urine Color Yellow (Yellow) 09/07/18 20:58 Urine Turbidity Clear (Clear) 09/07/18 20:58 Urine pH 5.0 (5.0-7.0) 09/07/18 20:58 Ur Specific [place] 1.012 (1.003-1.030) 09/07/18 20:58 Urine Protein <15 mg/dl mg/dL (Negative) 09/07/18 20:58 Urine Glucose (UA) 50 mg/dL (Negative) 09/07/18 20:58 Urine Ketones 20 mg/dL (Negative) 09/07/18 20:58 Urine Blood Sm (Negative) 09/07/18 20:58 Urine Nitrite Neg (Negative) 09/07/18 20:58 Urine Bilirubin Neg (Negative) 09/07/18 20:58 Urine Urobilinogen < 2.0 mg/dL (<2.0) 09/07/18 20:58 Ur Leukocyte Esterase Tr (Negative) 09/07/18 20:58 Urine WBC (Auto) 6.0 /HPF (0.0-6.0) 09/07/18 20:58 Urine RBC (Auto) 4.0 /HPF (0.0-6.0) 09/07/18 20:58 U Epithel Cells (Auto) 1.0 /HPF (0-13.0) 09/07/18 20:58 Urine Bacteria (Auto) 1+ /HPF (Negative) 09/07/18 20:58 Urine Mucus 2+ /HPF 09/07/18 20:58 Urine Yeast (Budding) Few /HPF 09/07/18 20:58 Salicylates < 0.3 mg/dL (2.8-20.0) L 09/07/18 17:46 Urine Opiates Screen Presumptive negative 09/07/18 20:58 Urine Methadone Screen Presumptive negative 09/07/18 20:58 Acetaminophen < 5.0 ug/mL (10.0-30.0) L 09/07/18 17:46 Ur Barbiturates Screen Presumptive negative 09/07/18 20:58 Ur Phencyclidine Scrn Presumptive negative 09/07/18 20:58 Ur Amphetamines Screen Presumptive negative 09/07/18 20:58 U Benzodiazepines Scrn Presumptive positive 09/07/18 20:58 Urine Cocaine Screen Presumptive negative 09/07/18 20:58 U Marijuana (THC) Screen Presumptive negative 09/07/18 20:58 Drugs of Abuse Note Disclamer 09/07/18 20:58 Plasma/Serum Alcohol < 0.01 % (0-0.07) 09/07/18 17:46 Assessment and Plan -Acute encephalopathy( toxic, metabolic) -Hypotension -h/o Neuroectodermal tumor -h/o Depression and anxiety -Wean off vasopressor support -Discontinue cortés catheter -Monitor electrolytes and hemodynaics -Psych evaluation -Discontinue NPO -regular diet Once vasopressor support if off, patient can be admitted to the telemetry floor. Discussed care plan with the patient and answered all her questions Discussed with ED RN and ED physician re care plan -
[2018-09-08] MEDS ORDERED: NACL 0.9% 1000 ML 1,000 ML ONE ×2 (20:52→22:44)
[2018-09-08] MEDS ORDERED: TYLENOL PO PRN (21:00)
[2018-09-08] MEDS ORDERED: TYLENOL ONE (21:17)
[2018-09-08] MEDS: FLAGYL PO SCH (23:19)
[2018-09-09] MEDS: LEVOPHED DRIP 4 MG/NS 250 ML 4 MG/250 ML BAG IV SCH (08:02)
[2018-09-09] MEDS ORDERED: NACL 0.9% 1000 ML 3,000 ML IV ONE (08:03)
[2018-09-09] MEDS ORDERED: NACL 0.9% 1000 ML 3,000 ML ONE (09:11)
[2018-09-09] MEDS ORDERED: ZOFRAN ONE (10:26)
[2018-09-09] MEDS ORDERED: FLAGYL ONE ×2 (10:27→20:39)
[2018-09-09] MEDS ORDERED: PEPCID IV ONE ×2 (10:27→20:38)
[2018-09-09] MEDS: PEPCID IV SCH ×2 (10:45→21:56)
[2018-09-09] MEDS: ZOFRAN IV PRN (10:45)
[2018-09-09] MEDS: FLAGYL PO SCH ×2 (10:45→21:55)
[2018-09-09] MEDS: SODIUM CHLORIDE FLUSH SYRINGE 10 ML IV SCH (10:45)
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
[2018-09-09] MEDS ORDERED: IMODIUM PO PRN (11:37)
[2018-09-09] MEDS ORDERED: IMODIUM ONE (11:58)
[2018-09-09] MEDS ORDERED: LEVOPHED DRIP 4 MG/NS 250 ML 4 MG/250 ML BAG IV ONE (12:45)
[2018-09-09] MEDS ORDERED: TORADOL ONE ×2 (14:31→20:37)
--- NOTE | 2018-09-09 14:31 | Progress Note ---
Assessment and Plan -Acute encephalopathy( toxic, metabolic) -Hypotension -h/o Neuroectodermal tumor -h/o Depression and anxiety -Wean off vasopressor support -Monitor electrolytes and hemodynamics -Psych evaluation, ongoing -Volume resuscitation -regular diet -VTE prophylaxis No clinical evidence for sepsis as the cause of her hypotension. This appears to be secondary to dehydration and medication induced. Discussed care plan with the patient and her mother and answered all their questions -Discussed with hospitalist service Defer psych for decision of on going 1013. Patient does not appear to be suicidal or homicidal at this time. Subjective Date of service: 09/09/18 Interval history: Follow up for: Acu encephalopathy; hypotension Patient was seen nad examined. Vitals, labs, medications, chart reviewed. No acute overnight events reported. She denies any chest pain, no shortness of breath, no fevers or chills. No diarrhea. On going need for vasopressor support. Mother at the bedside. Objective Vital Signs - 12hr 09/09/18 09/09/18 09/09/18 02:45 03:00 03:15 Temperature Pulse Rate 96 H Pulse Rate [ From Monitor] Respiratory 17 Rate Blood Pressure 90/50 96/56 95/44 Blood Pressure [Left] O2 Sat by Pulse 99 100 97 Oximetry 09/09/18 09/09/18 09/09/18 03:30 03:45 04:00 Temperature Pulse Rate 79 82 82 Pulse Rate [ 88 From Monitor] Respiratory 16 14 17 Rate Blood Pressure 93/50 92/49 96/50 Blood Pressure [Left] O2 Sat by Pulse 97 95 Oximetry 09/09/18 09/09/18 09/09/18 04:15 04:30 04:45 Temperature Pulse Rate 89 86 77 Pulse Rate [ From Monitor] Respiratory 14 16 12 Rate Blood Pressure 99/58 104/58 84/44 Blood Pressure [Left] O2 Sat by Pulse 99 95 99 Oximetry 09/09/18 09/09/18 09/09/18 05:00 05:15 05:30 Temperature Pulse Rate 99 H 89 66 Pulse Rate [ From Monitor] Respiratory 17 15 14 Rate Blood Pressure 97/46 91/39 95/49 Blood Pressure [Left] O2 Sat by Pulse 99 100 98 Oximetry 09/09/18 09/09/18 09/09/18 05:45 06:00 06:15 Temperature Pulse Rate 77 78 75 Pulse Rate [ From Monitor] Respiratory 18 15 14 Rate Blood Pressure 95/54 105/65 107/60 Blood Pressure [Left] O2 Sat by Pulse 99 99 97 Oximetry 09/09/18 09/09/18 09/09/18 06:30 06:45 07:00 Temperature Pulse Rate 83 80 76 Pulse Rate [ From Monitor] Respiratory 14 13 11 L Rate Blood Pressure 108/66 93/44 97/64 Blood Pressure [Left] O2 Sat by Pulse 99 100 99 Oximetry 09/09/18 09/09/18 09/09/18 07:15 07:30 07:45 Temperature Pulse Rate 82 76 82 Pulse Rate [ From Monitor] Respiratory 11 L 14 17 Rate Blood Pressure 103/72 99/65 95/56 Blood Pressure [Left] O2 Sat by Pulse 96 98 99 Oximetry 09/09/18 09/09/18 09/09/18 08:00 08:15 08:30 Temperature 98.4 F Pulse Rate 123 H 72 78 Pulse Rate [ 78 From Monitor] Respiratory 25 H 10 L 12 Rate Blood Pressure 95/56 104/68 106/75 Blood Pressure 97/64 [Left] O2 Sat by Pulse 99 100 99 Oximetry 09/09/18 09/09/18 09/09/18 08:45 09:00 09:15 Temperature Pulse Rate 82 74 72 Pulse Rate [ From Monitor] Respiratory 11 L 16 12 Rate Blood Pressure 106/62 98/61 108/70 Blood Pressure [Left] O2 Sat by Pulse 99 100 Oximetry 09/09/18 09/09/18 09/09/18 09:30 09:44 09:45 Temperature Pulse Rate 99 H 70 Pulse Rate [ From Monitor] Respiratory 13 18 Rate Blood Pressure 108/70 90/61 Blood Pressure [Left] O2 Sat by Pulse 99 Oximetry 09/09/18 09/09/18 09/09/18 10:00 10:15 10:30 Temperature Pulse Rate 96 H 74 78 Pulse Rate [ From Monitor] Respiratory 14 13 13 Rate Blood Pressure 90/61 107/78 113/84 Blood Pressure [Left] O2 Sat by Pulse Oximetry 09/09/18 09/09/18 09/09/18 10:45 11:00 11:15 Temperature Pulse Rate 79 79 76 Pulse Rate [ From Monitor] Respiratory 14 10 L 18 Rate Blood Pressure 100/63 100/63 102/66 Blood Pressure [Left] O2 Sat by Pulse Oximetry 09/09/18 09/09/18 09/09/18 11:30 11:45 12:00 Temperature Pulse Rate 88 75 84 Pulse Rate [ From Monitor] Respiratory 12 18 13 Rate Blood Pressure 96/76 106/68 86/57 Blood Pressure [Left] O2 Sat by Pulse Oximetry 09/09/18 09/09/18 12:15 12:30 Temperature Pulse Rate 73 79 Pulse Rate [ From Monitor] Respiratory 15 20 Rate Blood Pressure 89/51 89/51 Blood Pressure [Left] O2 Sat by Pulse Oximetry Constitutional: no acute distress Eyes: non-icteric ENT: oropharynx moist Neck: supple, no lymphadenopathy, no JVD Effort: normal Ascultation: Bilateral: clear Cardiovascular: regular rate and rhythm, other (S1,S2, no mururs, gallops or rubs) Gastrointestinal: normoactive bowel sounds, soft, non-tender, non-distended, other (No CVA tenderness, right groin CVC) Integumentary: normal, other Extremities: no cyanosis, no edema, pulses normal, no ischemia or petechiae Neurologic: normal mental status, non-focal exam, pupils equal and round, motor strength normal and Psychiatric: mood appropriate, affect normal CBC and BMP: 09/08/18 07:28 09/08/18 07:28 Abnormal lab findings: Abnormal Labs 09/07/18 09/07/18 09/07/18 17:46 17:46 17:46 Russell % (Auto) 12.4 H Lymph # BUN Creatinine Glucose Calcium Albumin Salicylates < 0.3 L Acetaminophen < 5.0 L 09/08/18 09/08/18 07:28 07:28 [place] % (Auto) 12.1 H Lymph # 1.0 L BUN 3 L Creatinine 0.6 L Glucose 107 H Calcium 7.9 L D Albumin 3.4 L Salicylates Acetaminophen Allied health notes reviewed: nursing
[2018-09-09] MEDS: TORADOL IV PRN (14:37)
--- NOTE | 2018-09-09 15:06 | Progress Note ---
Assessment and Plan Assessment and plan: Pt is a 18 yo BF with unknown medical condition who was brought to the ER for concern for DOD, pt has been unresponsive since admission, a UDS was positive for benzodiazepine. There was no family unavailable to provide medical history, while in the ER pt remain unresponsive, pt is responsive to painful stimuli, her pupil is pinpoint, her blood systolic pressure become low and continue to remain under 100, she was started in a Levophed drip to keep her systolic > 110.Pt will be transferred to ICU for continuous medical monitoring, she is placed in a 1013, and one-in-one observation is provided in room for pt's protection. This morning she reports that she was experiencing an anxiety attack and her boyfriend gave her one of xanax and she may have had a "bad reaction to it" Acute encephalopathy( toxic, metabolic) ?Vasogeneic shock Hypotension h/o Neuroectodermal tumor-PER PATIENT Doubt Suicidal ideation-Pt denies suicide attempt or desire Substance abuse h/o Depression and anxiety Plan Continue supportive care Give additional 5 liter bolus of fluids Contact precautions Rule out C.DIFF Wean off vasopressor support Continue 1013 Precaution until cleared by Psych Ok to eat Correct electrolytes DVT/GI prophy Plan of care discussed in detail with the patient. cct 35 mins History Interval history: Patient seen and examined, no new complains, wants to go home. having diarrhea per nursing staff. Hospitalist Physical - Physical exam Narrative exam: VITAL SIGNS: Reviewed. GENERAL: The patient appeared well nourished and normally developed otherwise lethargic. Vital signs as documented. HEAD: No signs of head trauma. EYES: Pupils are equal. Extraocular motions intact. EARS: Hearing grossly intact. MOUTH: Oropharynx is normal. NECK: No adenopathy, no JVD. CHEST: Chest with clear breath sounds bilaterally. No wheezes, rales, or rhonchi. CARDIAC: Regular rate and rhythm. S1 and S2, without murmurs, gallops, or rubs. VASCULAR: No Edema. Peripheral pulses normal and equal in all extremities. ABDOMEN: Soft, without detectable tenderness. No sign of distention. No rebound or guarding, and no masses palpated. Bowel Sounds normal. MUSCULOSKELETAL: Good range of motion of all major joints. Extremities without clubbing, cyanosis or edema. NEUROLOGIC EXAM: awake and oriented x 3. No focal sensory or strength deficits. Speech normal. Follows commands. PSYCHIATRIC: Mood normal. SKIN: No rash or lesions. - Constitutional Vitals: Temp Pulse Resp BP Pulse Ox 98.4 F 79 14 89/51 99 09/09/18 08:00 09/09/18 12:30 09/09/18 14:37 09/09/18 12:30 09/09/18 09:44 General appearance: Present: other (pt is unresponsive) Results - Labs CBC & Chem 7: 09/08/18 07:28 09/08/18 07:28 Labs: Laboratory Last Values WBC 5.7 K/mm3 (4.5-11.0) 09/08/18 07:28 RBC 4.29 M/mm3 (3.65-5.03) 09/08/18 07:28 Hgb 11.8 gm/dl (10.1-14.3) 09/08/18 07:28 Hct 37.1 % (30.3-42.9) 09/08/18 07:28 MCV 87 fl (79-97) 09/08/18 07:28 MCH 28 pg (28-32) 09/08/18 07:28 MCHC 32 % (30-34) 09/08/18 07:28 RDW 14.8 % (13.2-15.2) 09/08/18 07:28 Plt Count 186 K/mm3 (140-440) 09/08/18 07:28 Lymph % (Auto) 16.9 % (13.4-35.0) 09/08/18 07:28 [place] % (Auto) 12.1 % (0.0-7.3) H 09/08/18 07:28 Eos % (Auto) 0.8 % (0.0-4.3) 09/08/18 07:28 Baso % (Auto) 0.3 % (0.0-1.8) 09/08/18 07:28 Lymph # 1.0 K/mm3 (1.2-5.4) L 09/08/18 07:28 [place] # 0.7 K/mm3 (0.0-0.8) 09/08/18 07:28 Eos # 0.0 K/mm3 (0.0-0.4) 09/08/18 07:28 Baso # 0.0 K/mm3 (0.0-0.1) 09/08/18 07:28 Seg Neutrophils % 69.9 % (40.0-70.0) 09/08/18 07:28 Seg Neutrophils # 4.0 K/mm3 (1.8-7.7) 09/08/18 07:28 Sodium 140 mmol/L (137-145) 09/08/18 07:28 Potassium 3.8 mmol/L (3.6-5.0) 09/08/18 07:28 Chloride 107.0 mmol/L (98-107) 09/08/18 07:28 Carbon Dioxide 23 mmol/L (22-30) 09/08/18 07:28 Anion Gap 14 mmol/L 09/08/18 07:28 BUN 3 mg/dL (7-17) L 09/08/18 07:28 Creatinine 0.6 mg/dL (0.7-1.2) L 09/08/18 07:28 Estimated GFR > 60 ml/min 09/08/18 07:28 BUN/Creatinine Ratio 5 % 09/08/18 07:28 Glucose 107 mg/dL (65-100) H 09/08/18 07:28 Calcium 7.9 mg/dL (8.4-10.2) L D 09/08/18 07:28 Magnesium 1.80 mg/dL (1.7-2.3) 09/08/18 07:28 Total Bilirubin 0.50 mg/dL (0.1-1.2) 09/08/18 07:28 AST 17 units/L (5-40) 09/08/18 07:28 ALT 10 units/L (7-56) 09/08/18 07:28 Alkaline Phosphatase 42 units/L (35-129) 09/08/18 07:28 Total Protein 6.3 g/dL (6.3-8.2) D 09/08/18 07:28 Albumin 3.4 g/dL (3.9-5) L 09/08/18 07:28 Albumin/Globulin Ratio 1.2 % 09/08/18 07:28 TSH 1.770 mlU/mL (0.270-4.200) 09/07/18 17:46 HCG, Qual Negative (Negative) 09/07/18 17:46 Urine Color Yellow (Yellow) 09/07/18 20:58 Urine Turbidity Clear (Clear) 09/07/18 20:58 Urine pH 5.0 (5.0-7.0) 09/07/18 20:58 Ur Specific [place] 1.012 (1.003-1.030) 09/07/18 20:58 Urine Protein <15 mg/dl mg/dL (Negative) 09/07/18 20:58 Urine Glucose (UA) 50 mg/dL (Negative) 09/07/18 20:58 Urine Ketones 20 mg/dL (Negative) 09/07/18 20:58 Urine Blood Sm (Negative) 09/07/18 20:58 Urine Nitrite Neg (Negative) 09/07/18 20:58 Urine Bilirubin Neg (Negative) 09/07/18 20:58 Urine Urobilinogen < 2.0 mg/dL (<2.0) 09/07/18 20:58 Ur Leukocyte Esterase Tr (Negative) 09/07/18 20:58 Urine WBC (Auto) 6.0 /HPF (0.0-6.0) 09/07/18 20:58 Urine RBC (Auto) 4.0 /HPF (0.0-6.0) 09/07/18 20:58 U Epithel Cells (Auto) 1.0 /HPF (0-13.0) 09/07/18 20:58 Urine Bacteria (Auto) 1+ /HPF (Negative) 09/07/18 20:58 Urine Mucus 2+ /HPF 09/07/18 20:58 Urine Yeast (Budding) Few /HPF 09/07/18 20:58 Salicylates < 0.3 mg/dL (2.8-20.0) L 09/07/18 17:46 Urine Opiates Screen Presumptive negative 09/07/18 20:58 Urine Methadone Screen Presumptive negative 09/07/18 20:58 Acetaminophen < 5.0 ug/mL (10.0-30.0) L 09/07/18 17:46 Ur Barbiturates Screen Presumptive negative 09/07/18 20:58 Ur Phencyclidine Scrn Presumptive negative 09/07/18 20:58 Ur Amphetamines Screen Presumptive negative 09/07/18 20:58 U Benzodiazepines Scrn Presumptive positive 09/07/18 20:58 Urine Cocaine Screen Presumptive negative 09/07/18 20:58 U Marijuana (THC) Screen Presumptive negative 09/07/18 20:58 Drugs of Abuse Note Disclamer 09/07/18 20:58 Plasma/Serum Alcohol < 0.01 % (0-0.07) 09/07/18 17:46 C. difficile Toxin A&B Negative (Negative) 09/09/18 Unknown
[2018-09-09] MEDS ORDERED: NACL 0.9% 1000 ML 2,000 ML IV ONE (16:06)
[2018-09-09] MEDS ORDERED: NACL 0.9% 1000 ML 2,000 ML ONE (16:23)
[2018-09-10] MEDS ORDERED: ZOFRAN ONE ×2 (00:09→08:32)
[2018-09-10] MEDS: ZOFRAN IV PRN ×2 (00:30→08:34)
[2018-09-10] MEDS ORDERED: REGLAN ONE (06:41)
--- NOTE | 2018-09-10 09:42 | Progress Note ---
Assessment and Plan Assessment and plan: Pt is a 18 yo BF with unknown medical condition who was brought to the ER for concern for DOD, pt has been unresponsive since admission, a UDS was positive for benzodiazepine. There was no family unavailable to provide medical history, while in the ER pt remain unresponsive, pt is responsive to painful stimuli, her pupil is pinpoint, her blood systolic pressure become low and continue to remain under 100, she was started in a Levophed drip to keep her systolic > 110.Pt will be transferred to ICU for continuous medical monitoring, she is placed in a 1013, and one-in-one observation is provided in room for pt's protection. This morning she reports that she was experiencing an anxiety attack and her boyfriend gave her one of xanax and she may have had a "bad reaction to it" Despite multiple fluid resuscitation patient remains on vasopressor. The mother is desirable to take the patient to [facility] where her oncology doctors are. She understands she may need to make this arrangement herself due to [place] laws. Also if she provides me the number I can call and speak with the oncologist. I have also requested for medication reconciliation. Acute encephalopathy( toxic, metabolic) ?Vasogeneic shock Hypotension h/o Neuroectodermal tumor-PER PATIENT Doubt Suicidal ideation-Pt denies suicide attempt or desire Substance abuse h/o Depression and anxiety Plan Continue supportive care No C.DIFF Awaiting psych, Doubt that the patient is suicidal. Discontinue Contact precautions Wean off vasopressor support Continue 1013 Precaution until cleared by Psych] Imodium PRN Ok to eat Correct electrolytes HOME MEDS ONCE RECONCILED. Per mother this has happened before. I will also obtain Echocardiogram DVT/GI prophy Plan of care discussed in detail with the patient and mother. The high probability of a clinically significant, sudden or life threatening deterioration of the [circulatory] system(s) required my full and direct attention, intervention and personal management. The aggregate critical care time was [35] minutes. This time is in addition to time spent performing r eported procedures but includes the following: [x] Data Review and interpretation [x] Patient assessment and monitoring of vital signs [x] Documentation [x] Medication orders and management History Interval history: Patient seen and examined, no new complains, wants to go home. No new diarrhea per nursing staff. Hospitalist Physical - Physical exam Narrative exam: VITAL SIGNS: Reviewed. GENERAL: The patient appeared well nourished and normally developed otherwise lethargic. Vital signs as documented. HEAD: No signs of head trauma. EYES: Pupils are equal. Extraocular motions intact. EARS: Hearing grossly intact. MOUTH: Oropharynx is normal. NECK: No adenopathy, no JVD. CHEST: Chest with clear breath sounds bilaterally. No wheezes, rales, or rhonchi. CARDIAC: Regular rate and rhythm. S1 and S2, without murmurs, gallops, or rubs. VASCULAR: No Edema. Peripheral pulses normal and equal in all extremities. ABDOMEN: Soft, without detectable tenderness. No sign of distention. No rebound or guarding, and no masses palpated. Bowel Sounds normal. MUSCULOSKELETAL: Good range of motion of all major joints. Extremities without clubbing, cyanosis or edema. NEUROLOGIC EXAM: awake and oriented x 3. No focal sensory or strength deficits. Speech normal. Follows commands. PSYCHIATRIC: Mood normal. SKIN: No rash or lesions. - Constitutional Vitals: Temp Pulse Resp BP Pulse Ox 98.5 F 55 L 10 L 90/52 98 09/10/18 07:50 09/10/18 09:00 09/10/18 09:00 09/10/18 09:00 09/10/18 09:00 General appearance: Present: other (pt is unresponsive) Results - Labs CBC & Chem 7: 09/08/18 07:28 09/08/18 07:28 Labs: Laboratory Last Values WBC 5.7 K/mm3 (4.5-11.0) 09/08/18 07:28 RBC 4.29 M/mm3 (3.65-5.03) 09/08/18 07:28 Hgb 11.8 gm/dl (10.1-14.3) 09/08/18 07:28 Hct 37.1 % (30.3-42.9) 09/08/18 07:28 MCV 87 fl (79-97) 09/08/18 07:28 MCH 28 pg (28-32) 09/08/18 07:28 MCHC 32 % (30-34) 09/08/18 07:28 RDW 14.8 % (13.2-15.2) 09/08/18 07:28 Plt Count 186 K/mm3 (140-440) 09/08/18 07:28 Lymph % (Auto) 16.9 % (13.4-35.0) 09/08/18 07:28 Ross % (Auto) 12.1 % (0.0-7.3) H 09/08/18 07:28 Eos % (Auto) 0.8 % (0.0-4.3) 09/08/18 07:28 Baso % (Auto) 0.3 % (0.0-1.8) 09/08/18 07:28 Lymph # 1.0 K/mm3 (1.2-5.4) L 09/08/18 07:28 Ross # 0.7 K/mm3 (0.0-0.8) 09/08/18 07:28 Eos # 0.0 K/mm3 (0.0-0.4) 09/08/18 07:28 Baso # 0.0 K/mm3 (0.0-0.1) 09/08/18 07:28 Seg Neutrophils % 69.9 % (40.0-70.0) 09/08/18 07:28 Seg Neutrophils # 4.0 K/mm3 (1.8-7.7) 09/08/18 07:28 Sodium 140 mmol/L (137-145) 09/08/18 07:28 Potassium 3.8 mmol/L (3.6-5.0) 09/08/18 07:28 Chloride 107.0 mmol/L (98-107) 09/08/18 07:28 Carbon Dioxide 23 mmol/L (22-30) 09/08/18 07:28 Anion Gap 14 mmol/L 09/08/18 07:28 BUN 3 mg/dL (7-17) L 09/08/18 07:28 Creatinine 0.6 mg/dL (0.7-1.2) L 09/08/18 07:28 Estimated GFR > 60 ml/min 09/08/18 07:28 BUN/Creatinine Ratio 5 % 09/08/18 07:28 Glucose 107 mg/dL (65-100) H 09/08/18 07:28 Calcium 7.9 mg/dL (8.4-10.2) L D 09/08/18 07:28 Magnesium 1.80 mg/dL (1.7-2.3) 09/08/18 07:28 Total Bilirubin 0.50 mg/dL (0.1-1.2) 09/08/18 07:28 AST 17 units/L (5-40) 09/08/18 07:28 ALT 10 units/L (7-56) 09/08/18 07:28 Alkaline Phosphatase 42 units/L (35-129) 09/08/18 07:28 Total Protein 6.3 g/dL (6.3-8.2) D 09/08/18 07:28 Albumin 3.4 g/dL (3.9-5) L 09/08/18 07:28 Albumin/Globulin Ratio 1.2 % 09/08/18 07:28 TSH 1.770 mlU/mL (0.270-4.200) 09/07/18 17:46 HCG, Qual Negative (Negative) 09/07/18 17:46 Urine Color Yellow (Yellow) 09/07/18 20:58 Urine Turbidity Clear (Clear) 09/07/18 20:58 Urine pH 5.0 (5.0-7.0) 09/07/18 20:58 Ur Specific [place] 1.012 (1.003-1.030) 09/07/18 20:58 Urine Protein <15 mg/dl mg/dL (Negative) 09/07/18 20:58 Urine Glucose (UA) 50 mg/dL (Negative) 09/07/18 20:58 Urine Ketones 20 mg/dL (Negative) 09/07/18 20:58 Urine Blood Sm (Negative) 09/07/18 20:58 Urine Nitrite Neg (Negative) 09/07/18 20:58 Urine Bilirubin Neg (Negative) 09/07/18 20:58 Urine Urobilinogen < 2.0 mg/dL (<2.0) 09/07/18 20:58 Ur Leukocyte Esterase Tr (Negative) 09/07/18 20:58 Urine WBC (Auto) 6.0 /HPF (0.0-6.0) 09/07/18 20:58 Urine RBC (Auto) 4.0 /HPF (0.0-6.0) 09/07/18 20:58 U Epithel Cells (Auto) 1.0 /HPF (0-13.0) 09/07/18 20:58 Urine Bacteria (Auto) 1+ /HPF (Negative) 09/07/18 20:58 Urine Mucus 2+ /HPF 09/07/18 20:58 Urine Yeast (Budding) Few /HPF 09/07/18 20:58 Salicylates < 0.3 mg/dL (2.8-20.0) L 09/07/18 17:46 Urine Opiates Screen Presumptive negative 09/07/18 20:58 Urine Methadone Screen Presumptive negative 09/07/18 20:58 Acetaminophen < 5.0 ug/mL (10.0-30.0) L 09/07/18 17:46 Ur Barbiturates Screen Presumptive negative 09/07/18 20:58 Ur Phencyclidine Scrn Presumptive negative 09/07/18 20:58 Ur Amphetamines Screen Presumptive negative 09/07/18 20:58 U Benzodiazepines Scrn Presumptive positive 09/07/18 20:58 Urine Cocaine Screen Presumptive negative 09/07/18 20:58 U Marijuana (THC) Screen Presumptive negative 09/07/18 20:58 Drugs of Abuse Note Disclamer 09/07/18 20:58 Plasma/Serum Alcohol < 0.01 % (0-0.07) 09/07/18 17:46 C. difficile Toxin A&B Negative (Negative) 09/09/18 Unknown
[2018-09-10] MEDS: PEPCID IV SCH (11:00)
[2018-09-10] MEDS: FLAGYL PO SCH (11:00)
[2018-09-10] MEDS ORDERED: PEPCID IV ONE (11:01)
[2018-09-10] MEDS ORDERED: FLAGYL ONE (11:02)
--- NOTE | 2018-09-10 11:42 | Progress Note ---
Assessment and Plan -Acute encephalopathy( toxic, metabolic) -Hypotension -h/o Neuroectodermal tumor -h/o Depression and anxiety -Give one liter of ringer's lactate and repeat blood pressure and pulse measurements -Discontinue femoral CVC -Monitor electrolytes and hemodynamics -Psych evaluation on going -Increase activity, ambulate with assistance to ensure she does not become symptomatic. -Apparently has outpatient mental health follow up. Discussed care plan with the patient and answered all her questions Discussed with ED RN and hospitalist service. If she remains hemodynamically normal, off vasopressor support, can start discharge planning with close out patient follow up. Subjective Date of service: 09/10/18 Interval history: Follow up for: Acute encephalopathy; hypotension Patient was seen nad examined. Vitals, labs, medications, chart reviewed. No acute overnight events reported. She denies any chest pain, no shortness of breath, no fevers or chills. No diarrhea. Off vasopressor support. Was orthostatic this morning. Objective Vital Signs - 12hr 09/09/18 09/10/18 09/10/18 23:46 00:00 00:12 Temperature Pulse Rate 97 H 75 58 L Respiratory 11 L 13 15 Rate Blood Pressure 89/45 88/52 127/88 Blood Pressure [Left] O2 Sat by Pulse Oximetry 09/10/18 09/10/18 09/10/18 00:15 00:30 00:45 Temperature Pulse Rate 60 51 L 57 L Respiratory 18 16 14 Rate Blood Pressure 117/82 110/66 113/63 Blood Pressure [Left] O2 Sat by Pulse Oximetry 09/10/18 09/10/18 09/10/18 01:00 01:15 01:30 Temperature Pulse Rate 54 L 54 L 53 L Respiratory 18 18 17 Rate Blood Pressure 99/56 106/64 114/72 Blood Pressure [Left] O2 Sat by Pulse Oximetry 09/10/18 09/10/18 09/10/18 01:45 02:00 02:16 Temperature Pulse Rate 53 L 69 64 Respiratory 18 14 18 Rate Blood Pressure 103/65 124/89 121/76 Blood Pressure [Left] O2 Sat by Pulse Oximetry 09/10/18 09/10/18 09/10/18 02:30 02:45 03:00 Temperature Pulse Rate 50 L 58 L 53 L Respiratory 13 17 15 Rate Blood Pressure 94/58 102/62 95/67 Blood Pressure [Left] O2 Sat by Pulse Oximetry 09/10/18 09/10/18 09/10/18 03:15 03:30 03:45 Temperature Pulse Rate 52 L 55 L 54 L Respiratory 13 16 17 Rate Blood Pressure 94/63 97/54 94/60 Blood Pressure [Left] O2 Sat by Pulse Oximetry 09/10/18 09/10/18 09/10/18 04:00 04:15 04:30 Temperature Pulse Rate 48 L 52 L 55 L Respiratory 15 16 15 Rate Blood Pressure 100/59 100/62 100/66 Blood Pressure [Left] O2 Sat by Pulse Oximetry 09/10/18 09/10/18 09/10/18 04:45 05:00 05:15 Temperature Pulse Rate 53 L 74 47 L Respiratory 16 9 L 14 Rate Blood Pressure 104/63 113/81 110/70 Blood Pressure [Left] O2 Sat by Pulse 96 Oximetry 09/10/18 09/10/18 09/10/18 05:45 06:00 06:30 Temperature Pulse Rate 50 L 55 L 55 L Respiratory 20 20 20 Rate Blood Pressure Blood Pressure 99/59 92/53 108/65 [Left] O2 Sat by Pulse 100 100 99 Oximetry 09/10/18 09/10/18 09/10/18 06:45 07:00 07:15 Temperature Pulse Rate 65 52 L 49 L Respiratory 18 20 20 Rate Blood Pressure Blood Pressure 107/75 117/67 105/71 [Left] O2 Sat by Pulse 100 99 99 Oximetry 09/10/18 09/10/18 09/10/18 07:30 07:45 07:46 Temperature Pulse Rate 48 L 51 L 51 L Respiratory 20 18 16 Rate Blood Pressure Blood Pressure 102/70 106/68 [Left] O2 Sat by Pulse 99 100 100 Oximetry 09/10/18 09/10/18 09/10/18 07:50 08:00 08:16 Temperature 98.5 F Pulse Rate 74 58 L 69 Respiratory 16 15 7 L Rate Blood Pressure 101/59 101/59 Blood Pressure 121/77 101/59 [Left] O2 Sat by Pulse 99 100 99 Oximetry 09/10/18 09/10/18 09/10/18 08:30 08:46 09:00 Temperature Pulse Rate 79 64 55 L Respiratory 13 14 10 L Rate Blood Pressure 96/53 96/53 90/52 Blood Pressure 96/53 [Left] O2 Sat by Pulse 97 100 98 Oximetry 09/10/18 09/10/18 09/10/18 09:15 09:30 09:45 Temperature Pulse Rate 95 H 89 84 Respiratory 12 18 14 Rate Blood Pressure 103/71 95/56 96/56 Blood Pressure [Left] O2 Sat by Pulse 100 99 Oximetry 09/10/18 09/10/18 10:00 10:15 Temperature Pulse Rate 89 99 H Respiratory 12 16 Rate Blood Pressure 107/70 101/64 Blood Pressure [Left] O2 Sat by Pulse Oximetry Constitutional: no acute distress Eyes: non-icteric ENT: oropharynx moist Neck: supple, no lymphadenopathy, no JVD Effort: normal Ascultation: Bilateral: clear Cardiovascular: regular rate and rhythm, other (S1,S2, no mururs, gallops or rubs) Gastrointestinal: normoactive bowel sounds, soft, non-tender, non-distended, other (No CVA tenderness, [place] catheter, right groin CVA) Integumentary: normal, other Extremities: no cyanosis, no edema, pulses normal, no ischemia or petechiae Neurologic: normal mental status, non-focal exam, pupils equal and round, motor strength normal and Psychiatric: mood appropriate, affect normal CBC and BMP: 09/08/18 07:28 09/08/18 07:28 Abnormal lab findings: Abnormal Labs 09/07/18 09/07/18 09/07/18 17:46 17:46 17:46 [place] % (Auto) 12.4 H Lymph # BUN Creatinine Glucose Calcium Albumin Salicylates < 0.3 L Acetaminophen < 5.0 L 09/08/18 09/08/18 07:28 07:28 [place] % (Auto) 12.1 H Lymph # 1.0 L BUN 3 L Creatinine 0.6 L Glucose 107 H Calcium 7.9 L D Albumin 3.4 L Salicylates Acetaminophen
[2018-09-10] MEDS ORDERED: NACL 0.9% 1000 ML 1,000 ML IV ONE (12:26)
[2018-09-10] MEDS ORDERED: NACL 0.9% 1000 ML 1,000 ML ONE (12:31)
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
[2018-09-10 14:41] VITALS: BP 112/79
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
== END 2018-09-11 12:25 | disposition home or self-care (01) | DRG 917 ==
LOC: ED 16:42 → EEVIPCON 22:38 → CC1 22:38 → 4A 09-10 14:43
PROVIDERS: ADMIT Internal Medicine; ATTEND Internal Medicine
PROC: 06HY33Z Insertion of Infusion Device into Lower Vein, Percutaneous Approach (ICD-10-PCS; principal; 2018-09-07)
PROC: B54BZZA Ultrasonography of Right Lower Extremity Veins, Guidance (ICD-10-PCS; 2018-09-07)
DX: T42.4X2A Poisoning by benzodiazepines, intentional self-harm, initial encounter (principal); G92 Toxic encephalopathy; R57.8 Other shock; Y92.89 Other specified places as the place of occurrence of the external cause; F32.9 Major depressive disorder, single episode, unspecified; F41.9 Anxiety disorder, unspecified; F10.10 Alcohol abuse, uncomplicated; Z85.848 Personal history of malignant neoplasm of other parts of nervous tissue; Z92.21 Personal history of antineoplastic chemotherapy; I95.9 Hypotension, unspecified; T50.902A Poisoning by unspecified drugs, medicaments and biological substances, intentional self-harm, initial encounter
CPT/HCPCS: 36415; 70450; 71045; 80053; 80307; 80320; 81001; 83735; 84443; 84703; 85025; 87040; 87086; 87324; 93005; 93010; 93306; G0378; G0480; J1885; J2405; J2765; J7030; J7042